=== PATIENT | female | born 1975 | race Caucasian/White ===

== ENCOUNTER 2017-08-18 16:58 | Emergency (ER) | payer MEDICAID, OTHER ==
[~2017-08-18] VITALS: Ht 165.1 cm; Wt 80.0 kg
[~2017-08-18 16:58] MED LIST: ALBU2SYR10 PO; AMPI500C9 PO; D-ME473S2 PO; DICY10CA60 PO; HYDR-762 PO; LANS30CA47 PO
[2017-08-18 17:02] VITALS: Ht 165.1 cm; Wt 80.0 kg
[2017-08-18] MEDS ORDERED: HYDROCODONE/APAP (5/325) TAB PO ONE (19:00)
--- NOTE | 2017-08-18 19:09 | RADRPT ---
PROCEDURE: Chest x-ray CLINICAL INDICATION: Abdominal pain TECHNIQUE: Chest single view COMPARISON: 12/09/2013 FINDINGS: The heart is normal in size. The pulmonary vessels are normal in caliber. The lungs are clear. Th e costophrenic angles are sharp. The visualized bony thorax is unremarkable. IMPRESSION: No acute cardiopulmonary disease. RPTAT: HH .Fernando العلي MD, Date Time Electronically viewed and signed by .Fernando العلي MD, on 08/18/2017 19:08 .W/
--- NOTE | 2017-08-18 19:14 | ERD ---
ER Documentation Chief Complaint Chief Complaint right shoulder pain HPI This is a 42-year-old female who presents the emergency department today complaining of chest wall pain for the past month. States that it was not that bad so she did not call her doctor but then got worse last night. Her chest hurts when she moves. States that she also has some abdominal pain that started last night. States she has a headache and dizziness. Denies any fevers or chills, vomiting, cough, foreign travel. She has not taken a medication for the pain. ROS All systems reviewed and are negative except as per history of present illness. Medications Home Meds Active Scripts Naproxen* (Naprosyn*) 500 Mg Tablet, 500 MG PO BID Y for PAIN AND/OR INFLAMMATION, #30 TAB Prov:JAC MACHUCA PA-C 08/18/17 Hydrocodone/Acetaminophen ([place] [facility] 5-325 Tablet) 1 Each Tablet, 1 TAB PO Q6H Y for PAIN, #12 TAB Prov:JAC MACHUCA PA-C 08/18/17 Hydrocodone Bit-Acetaminophen* ([facility]*) 10-325 Mg Tablet, 1 TAB PO Q6 Y for PAIN , #10 TAB Prov:SMILEY FUNG MD 11/02/15 Lansoprazole* (Prevacid*) 30 Mg Capsule.dr, 30 MG PO DAILY, #30 Prov:SMILEY FUNG MD 11/02/15 Reported Medications Dextromethorphan Hb-Promethazine Hcl* (Promethazine DM* Syrup) 473 Ml Syrup, 5 ML PO Q6 Y for COUGH, ML 11/02/15 Dicyclomine Hcl* (Bentyl*) 10 Mg Capsule, 10 MG PO QID, CAP 11/02/15 Albuterol Sulfate* (Albuterol Sulfate* Liq) 2 Mg/5 Ml Syrup, 2 MG PO TID, #240 ML 11/02/15 Ampicillin* (Ampicillin*) 500 Mg Cap, 500 MG PO QID, CAP 11/02/15 Allergies Allergies: Coded Allergies: No Known Allergy (Unverified , 08/09/12) PMhx/Soc History of Surgery: No Anesthesia Reaction: No Hx Neurological Disorder: No Hx Respiratory Disorders: Yes (ASTHMA) Hx Cardiac Disorders: No Hx Psychiatric Problems: No Hx Miscellaneous Medical Probl: No Hx Alcohol Use: No Hx Substance Use: No Hx Tobacco Use: No Smoking Status: Never smoker Physical Exam Vitals Vital Signs Date Time Temp Pulse Resp B/P Pulse Ox O2 Delivery O2 Flow Rate FiO2 08/18/17 17:02 98.1 78 20 138/78 99 Physical Exam Const: NAD Head: Atraumatic Eyes: Normal Conjunctiva. PERRLA. EOM intact. ENT: Normal External Ears, Nose and Mouth. Neck: Full range of motion..~ No meningismus. Resp: Clear to auscultation bilaterally no absent breath sounds. No wheezing. Tenderness palpation with chest wall compression and bilateral trunk rotation. Cardio: Regular rate and rhythm, no murmurs Abd: Soft, gastric and right upper quadrant tenderness, non distended. Normal bowel sounds. No lower abdominal pain. No tenderness at McBurney's. Skin: No petechiae or rashes Back: No midline or flank tenderness Ext: No cyanosis, or edema Neur: Awake and alert. Cranial nerves II through XII intact. No gait ataxia. Psych: Normal Mood and Affect Result Diagram: 08/18/17191108/18/171911 Results 24 hrs Laboratory Tests Test 08/18/17 19:12 08/18/17 19:20 White Blood Count 9.610^3/ul Red Blood Count 4.8110^6/ul Hemoglobin 14.3g/dl Hematocrit 41.6% Mean Corpuscular Volume 86.5fl Mean Corpuscular Hemoglobin 29.7pg Mean Corpuscular Hemoglobin Concent 34.4g/dl Red Cell Distribution Width 12.7% Platelet Count 26455^3/UL Mean Platelet Volume 10.9fl Neutrophils % 82.5% Lymphocytes % 11.5% Monocytes % 4.9% Eosinophils % 0.7% Basophils % 0.2% Nucleated Red Blood Cells % 0.0/100WBC Neutrophils # 8.010^3/ul Lymphocytes # 1.110^3/ul Monocytes # 0.510^3/ul Eosinophils # 0.110^3/ul Basophils # 0.010^3/ul Nucleated Red Blood Cells # 0.010^3/ul Sodium Level 139mmol/L Potassium Level 3.7mmol/L Chloride Level 103mmol/L Carbon Dioxide Level 25mmol/L Anion Gap 15 Blood Urea Nitrogen 12mg/dl Creatinine 0.75mg/dl Glucose Level 92mg/dl Calcium Level 9.2mg/dl Total Bilirubin 0.6mg/dl Direct Bilirubin 0.00mg/dl Indirect Bilirubin 0.6mg/dl Aspartate Amino Transf (AST/SGOT) 32IU/L Alanine Aminotransferase (ALT/SGPT) 48IU/L Alkaline Phosphatase 66IU/L Total Protein 8.2g/dl Albumin 4.1g/dl Globulin 4.10g/dl Albumin/Globulin Ratio 1.00 Lipase 113U/L Urine Color YELLOW Urine Clarity CLEAR Urine pH 5.0 Urine Specific [place] 1.011 Urine Ketones NEGATIVEmg/dL Urine Nitrite NEGATIVEmg/dL Urine Bilirubin NEGATIVEmg/dL Urine Urobilinogen NEGATIVEmg/dL Urine Leukocyte Esterase NEGATIVELeu/ul Urine Microscopic RBC 6/HPF Urine Microscopic WBC 2/HPF Urine Hemoglobin 1+mg/dL Urine Glucose NEGATIVEmg/dL Urine Total Protein NEGATIVEmg/dl Current Medications Medications (Trade) Dose Ordered Sig/Enzo Route PRN Reason Start Time Stop Time Status Last Admin Dose Admin Acetaminophen/ Hydrocodone Bitart ([facility] [facility] (5/325)) 1 tab ONCE ONCE PO 08/18/17 19:00 08/18/17 19:01 DC 08/18/17 19:30 DIAGNOSTIC IMAGING REPORT Patient: LEVON WINSTON : 1975 Age: 42 Sex: F MR #: [id number] DOS: 08/18/17 1835 Ordering MD: JAC MACHUCA PA-C Location: [facility] Room/Bed: PROCEDURE: US abdomen limited right upper quadrant. CLINICAL INDICATION: Abdominal pain TECHNIQUE: Multiple real-time images were acquired of the patient's right upper quadrant of the abdomen utilizing a high resolution transducer. COMPARISON: US ABDOMEN 11/02/2015 FINDINGS: No shadowing gallstones are identified within the gallbladder. There is appearance of a small amount of nonshadowing echogenic material in the gallbladder on the submitted images which could represent small amount of sludge. There is no pericholecystic fluid or gallbladder wall thickening. The common bile duct measures 2.4 mm in maximal dimension. No free fluid is identified. No abnormality is seen in the pancreatic head or body or liver. Pancreatic tail is not well seen due to bowel gas. The inferior vena cava is unremarkable. No aneurysm of the proximal or mid abdominal aorta is seen. The right kidney measures approximately 8.5 cm in length and is unremarkable. Lower pole of the right kidney is obscured by bowel gas. IMPRESSION: Pancreatic tail not well seen. Lower pole of right kidney obscured by bowel gas. Possible small amount of sludge in gallbladder on submitted images. RPTAT: HJES .Bharathi Briseno MD, MD Date Time Electronically viewed and signed by .Bharathi Briseno MD, MD on 08/18/2017 19:24 .S/ CC: JAC MACHUCA PA-C DIAGNOSTIC IMAGING REPORT Patient: LEVON WINSTON : 1975 Age: 42 Sex: F MR #: [id number] DOS: 08/18/17 1835 Ordering MD: JAC MACHUCA PA-C Location: [facility] Room/Bed: PROCEDURE: Chest x-ray CLINICAL INDICATION: Abdominal pain TECHNIQUE: Chest single view COMPARISON: 12/09/2013 FINDINGS: The heart is normal in size. The pulmonary vessels are normal in caliber. The lungs are clear. The costophrenic angles are sharp. The visualized bony thorax is unremarkable. IMPRESSION: No acute cardiopulmonary disease. RPTAT: HH .Fernando العلي MD, MD Date Time Electronically viewed and signed by .Fernando العلي MD, MD on 08/18/2017 19:08 .W/ CC: JAC MACHUCA PA-C Procedures/[facility] This is a 42-year-old female presents to the emergency department today with multiple complaints. Patient was complaining of some chest wall pain for the past month it got worse last night. Patient was also complaining of some abdominal pain. Patient i s afebrile and otherwise well-appearing. Her oxygen saturation 99%. She is not tachycardic. Patient does have tenderness to palpation on her chest wall and pain with rotation it is likely musculoskeletal and costochondritis however given that she has had this pain for a month I did obtain a chest x-ray. Chest x-ray shows no acute cardiopulmonary disease. Lungs are clear. Patient was also complaining of abdominal pain headache and dizziness. I did obtain laboratory workup as well as a right upper quadrant ultrasound based on her physical exam Laboratory workup shows no elevated white blood cell count. She is not anemic. Platelets are within normal limits. Electrolytes are within normal limits. Glucose is within normal limits. Liver enzymes are within normal limits. Lipase is within normal limits. UA negative for infection. test is negative Right upper quadrant ultrasound is no shadowing gallstones identified but there is appearance of a small amount of nonshadowing echogenic material in the gallbladder which could represent small amount of sludge. There is no pericholecystic fluid or gallbladder wall thickening. Common bile duct measures 2.4 mm in maximal dimension. There is no free fluid. There is no abnormality seen in the pancreatic head or body or liver the pancreatic tail is not well seen due to bowel gas. Patient was given [facility] [facility] here in the emergency department improved. Patient symptoms at this time is consistent with abdominal pain possibly from gallbladder sludge. Low suspicion for acute surgical abdomen. Patient also has chest wall pain that is worse with movement likely costochondritis.. I have low suspicion for pneumonia, PE, abscess, pleural effusion, pneumothorax. Patient was given a prescription for [facility] and Naprosyn. She is instructed to follow-up with her primary care doctor for referral to generral surgery. At this time the patient is stable for discharge and outpatient management. Patient should follow up with their PCP in the next 1-2 days. They may return to the emergency department sooner for any persistent or worsening of symptoms. Patient understood and agreed with the plan. Departure Diagnosis: Primary Impression: Multiple complaints Condition: JAC Beasley PA-C Aug 18, 2017 19:14
--- NOTE | 2017-08-18 19:25 | RADRPT ---
PROCEDURE: US abdomen limited right upper quadrant. CLINICAL INDICATION: Abdominal pain TECHNIQUE: Multiple real-time images were acquired of the patient's right upper quadrant of the ab domen utilizing a high resolution transducer. COMPARISON: US ABDOMEN 11/02/2015 FINDINGS: No shadowing gallstones are identified within the gallbladder. There is appearance of a small amoun t of nonshadowing echogenic material in the gallbladder on the submitted images which could represen t small amount of sludge. There is no pericholecystic fluid or gallbladder wall thickening. The common bile duct measures 2.4 mm in maximal dimension. No free fluid is identified. No abnormality is seen in the pancreatic head or body or liver. Pancrea tic tail is not well seen due to bowel gas. The inferior vena cava is unremarkable. No aneurysm of the proximal or mid abdominal aorta is seen. The right kidney measures approximately 8.5 cm in lengt h and is unremarkable. Lower pole of the right kidney is obscured by bowel gas. IMPRESSION: Pancreatic tail not well seen. Lower pole of right kidney obscured by bowel gas. Possible small amou nt of sludge in gallbladder on submitted images. RPTAT: HJES .Bharathi Briseno MD, Date Time Electronically viewed and signed by .Bharathi Briseno MD, on 08/18/2017 19:24 .S/
[2017-08-18 19:41] LABS: ADD UMIC YES; UR ASCORBIC ACID NEGATIVE (NEGATIVE); UR BILIRUBIN (Dip) NEGATIVE (NEGATIVE); UR BLOOD (Dip) 1+ mg/dL (NEGATIVE); UR CLARITY CLEAR (CLEAR); UR COLOR YELLOW (YELLOW); UR GLUCOSE (Dip) NEGATIVE (NEGATIVE); UR KETONES (Dip) NEGATIVE (NEGATIVE); UR LEUKOCYTE ESTERASE (Dip) NEGATIVE Leu/ul (NEGATIVE); UR NITRITE (Dip) NEGATIVE (NEGATIVE); UR RBC 6 /HPF (0-5); UR SPECIFIC GRAVITY (Dip) 1.011 (1.003-1.030); UR TOTAL PROTEIN (Dip) NEGATIVE (NEGATIVE); UR UROBILINOGEN (Dip) NEGATIVE (NEGATIVE)
[2017-08-18 19:56] LABS: BASOPHILS % 0.2 % (0.0-2.0); EOSINOPHILS # 0.1 10^3/ul (0.0-0.5); EOSINOPHILS % 0.7 % (0.0-7.0); HEMATOCRIT 41.6 % (37.0-47.0); HEMOGLOBIN 14.3 g/dl (12.0-16.0); LYMPHOCYTES # 1.1 10^3/ul (0.8-2.9); LYMPHOCYTES % 11.5 % (15.0-51.0); MEAN CORPUSCULAR HEMOGLOBIN 29.7 pg (29.0-33.0); MEAN CORPUSCULAR HGB CONC 34.4 g/dl (32.0-37.0); MEAN CORPUSCULAR VOLUME 86.5 fl (82.0-101.0); MEAN PLATELET VOLUME 10.9 fl (7.4-10.4); MONOCYTE # 0.5 10^3/ul (0.3-0.9); MONOCYTES % 4.9 % (0.0-11.0); NEUTROPHILS % 82.5 % (39.0-77.0); PLATELET COUNT 199 10^3/UL (140-415); RED BLOOD COUNT 4.81 10^6/ul (4.20-5.40); RED CELL DISTRIBUTION WIDTH 12.7 % (11.5-14.5); WHITE BLOOD COUNT 9.6 10^3/ul (4.8-10.8)
[2017-08-18 20:22] LABS: ALBUMIN 4.1 g/dl (3.3-4.9); BILIRUBIN,INDIRECT 0.6 mg/dl (0-1.1); BILIRUBIN,TOTAL 0.6 mg/dl (0.2-1.3); CALCIUM 9.2 mg/dl (8.4-10.2); CREATININE 0.75 mg/dl (0.44-1.00); POTASSIUM 3.7 mmol/L (3.5-5.1); TOTAL PROTEIN 8.2 g/dl (6.1-8.1)
[2017-08-18] MEDS ORDERED: NAPR-260 PO (20:42)
[2017-08-18] MEDS ORDERED: HYDR-906 PO (20:42)
[2017-08-18 21:10] VITALS: BP 114/78; PULSE 98; RESP 18; TEMP 98
== END 2017-08-18 21:10 | disposition home or self-care (01) ==
LOC: FTE 16:58
DX: M25.511 Pain in right shoulder (principal); R07.89 Other chest pain; J45.909 Unspecified asthma, uncomplicated
CPT/HCPCS: 36415; 71010; 76705; 80053; 81001; 83690; 85025; Z7502; Z7610

== ENCOUNTER 2018-05-20 09:22 | Emergency (ER) | END 2018-05-20 10:00 | disposition home or self-care (01) ==

== ENCOUNTER 2018-06-28 13:45 | Outpatient (CLI) | END 2018-06-28 15:15 | disposition home or self-care (01) ==

== ENCOUNTER 2018-07-21 13:00 | Inpatient (IN) | END 2018-07-23 15:30 | disposition home or self-care (01) | DRG 807 ==